=== PATIENT | female | born 1985 | race Two or more races ===

== ENCOUNTER 2016-07-12 11:25 | Emergency (ER) | payer MEDICAID ==
[2016-07-12 12:08] VITALS: BP 104/71; PULSE 80; RESP 16; TEMP 98.4; O2SAT 96
--- NOTE | 2016-07-12 12:53 | UCPHY ---
H & P Time Seen by Provider: 07/12/16 12:49 Patient Type: Established HPI/ROS: HPI: 22-year-old female presents to urgent care with chief concern mild headache, 1 episode of diarrhea. Symptoms onset suddenly this morning upon awakening. Denies fever, chills, URI symptoms, shortness of breath, chest pain , nausea, vomiting, abdominal pain, rash. Has a child with influenza presently. Has an infant at home. No history of asthma. ROS:10 point review of systems is negative other than as stated in HPI Smoking Status: Never smoked Physical Exam: Vital signs stable, reviewed by me General: Awake, alert, calm, cooperative. No acute distress. Head: Normalocephalic. Atraumatic. EENT: PERRLA. EOMI. No pallor or injection. Anicteric. No nystagmus. No injection. TMs intact bilaterally with normal landmarks. No rhinnorhea, nasal passages clear. Oropharynx without redness, exudates, or lesions. Tonsils 2+ bilaterally, no exudates. Neck: Supple, nontender. No lymphadenopathy. Full range of motion. No meningismus. Respiratory: Breathing unlabored. Breath sounds equal bilaterally and clear to auscultation. No adventitious sounds. CV: Chest nontender, atraumatic. Heart rate regular. No murmur, distal pulses 2+ bilaterally. Brisk cap refill all extremities. GI: Abdomen soft, nontender. Bowel sounds normoactive and positive x4 quadrants. : No suprapubic tenderness. No CVA or flank tenderness. Neuro: Alert. Oriented x 3. Speech clear. Nonfocal cranial nerves throughout. Sensation intact all extremities. Skin: Skin warm, dry, intact. No rashes, abrasions, or lacerations. Skin turgor normal. Extremities: Full range of motion in all 4 extremities. Strength 5+ all extremities. Constitutional: Initial Vital Signs Temperature (C) 36.9 C 07/12/16 12:05 Heart Rate 80 07/12/16 12:05 Respiratory Rate 16 07/12/16 12:05 Blood Pressure 104/71 07/12/16 12:05 O2 Sat (%) 96 07/12/16 12:05 O2 Delivery Mode Room Air Allergies/Adverse Reactions: No Known Allergies Allergy (Verified 07/12/16 12:08) Home Medications: Medication Instructions Recorded Oseltamivir Phosphate [Tamiflu 75 75 mg PO DAILY #10 cap 07/12/ mg (*)] Medical Decision Making ED Course/Re-evaluation: Nontoxic afebrile female presents to urgent care having had 1 episode of diarrhea and headache. She has no fever, no abdominal pain. She has no upper respiratory symptoms presently. As she has a at home, I will treat her with prophylactic Tamiflu. Differential Diagnosis: Viral syndrome, influenza, food-borne illness, gastroenteritis Departure - Departure Disposition: Home, Routine, Self-Care Clinical Impression: Viral syndrome Condition: Good Instructions: Viral Syndrome (ED) Additional Instructions: Plan: May use ibuprofen and/or Tylenol as needed for symptoms Drink plenty of fluids Take prophylactic Tamiflu as prescribed since you have an infant Follow up with primary care next week Prescriptions: Oseltamivir Phosphate [Tamiflu 75 mg (*)] 75 mg PO DAILY #10 cap - PQRS PQRS Measurement: Not applicable
== END 2016-07-12 13:02 | disposition home or self-care (01) ==
LOC: CED 11:25
DX: B34.9 Viral infection, unspecified (principal)
CPT/HCPCS: 99214-PO; G0463-PO

== ENCOUNTER 2017-05-10 09:18 | Emergency (ER) | payer MEDICAID ==
[2017-05-10 09:32] VITALS: BP 112/98; PULSE 84; RESP 16; TEMP 98.4; O2SAT 96
--- NOTE | 2017-05-10 10:03 | EDPHY ---
H & P Time Seen by Provider: 05/10/17 09:42 HPI/ROS: This patient presents with URI symptoms of 24 hours duration. She complains of coryza, a sore throat of moderate intensity associated with bilateral ear pressure. She has a mild cough associated with her symptoms and bifrontal headache of [id number] intensity. She also complains of generalized fatigue. She tried a oird-[id number] cold and flu preparation without relief this morning. She also tried halls with partial relief of her sore throat. No other exacerbating or alleviating factors are noted. ROS: Constitutional as per HPI. No high fevers or chills. HEENT: No drainage from her ear change in hearing. She still tolerating p.o. intake despite her sore throat. Pulmonary: No pleuritic pain or hemoptysis. No dyspnea. Cardiovascular: No chest pain or lightheadedness. GI: No vomiting or diarrhea. Integumentary: No skin rash Musculoskeletal: No arthralgias. 7point ROS is otherwise negative Past Medical/Surgical History: Otherwise healthy Smoking Status: Never smoked Physical Exam: Physical Exam Vital signs are normal. General: No acute distress HEENT: Nose: Clear discharge bilaterally. No sinus tenderness to percussion. Ears: External canals and tympanic membranes are clear with no erythema or abnormal findings bilaterally. Oropharynx: Mild erythema. No exudates. No dysphonia. No drooling or stridor. Eyes: Pupils equal and react to light. Extraocular motions are intact. Neck: Supple with no meningismus. No lymphadenopathy Lungs: Clear to auscultation bilaterally with no rales, rhonchi or wheeze. No respiratory distress. Cardiac: Regular rate and rhythm with no murmur gallop or rub Skin: No rash or pallor. Neuro: Alert with no focal deficits noted. Constitutional: Initial Vital Signs Temperature (C) 36.9 C 05/10/17 09:29 Heart Rate 84 05/10/17 09:29 Respiratory Rate 16 05/10/17 09:29 Blood Pressure 112/98 H 05/10/17 09:29 O2 Sat (%) 96 05/10/17 09:29 O2 Delivery Mode Room Air Allergies/Adverse Reactions: No Known Allergies Allergy (Verified 05/10/17 09:39) Home Medications: Medication Instructions Recorded Flunisolide Nasal [Nasarel Nasal 2 sprays NS BID #1 mdi 05/10/17 [place]] MDM/Departure - MDM ED Course/Re-evaluation: Discussion: Patient's presentation is consistent with viral URI without clinical evidence to suggest strep pharyngitis, lower respiratory infection, bronchitis or other complicating factors. I counseled the patient regarding viral URI - Depart Disposition: Home, Routine, Self-Care Clinical Impression: Viral URI Condition: Good Instructions: Upper Respiratory Infection (ED) Additional Instructions: Dx: Viral Upper Respiratory Infection plan: humidifier Flonase nasal spray Ibuprofen 400 -600 mg per 6 hrs as needed for fever, JOLLY or sore throat. Tylenol in addition if needed 650 - 1000 mg per 4 hrs in addition a few time per day Symptoms will typically last 3-10 days. Return difficulty breathing, high fevers despite tylenol or ibuprofen or other concerns. Prescriptions: Flunisolide Nasal [Nasarel Nasal [place]] 2 sprays NS BID #1 mdi Referrals: Unknown,Unknown [Primary Care Provider] - As per Instructions
== END 2017-05-10 10:10 | disposition home or self-care (01) ==
LOC: CED 09:18
DX: J06.9 Acute upper respiratory infection, unspecified (principal)

== ENCOUNTER 2017-05-22 15:47 | Emergency (ER) | payer MEDICAID ==
[2017-05-22 16:00] VITALS: RESP 16
[2017-05-22] MEDS ORDERED: KETOROLAC 30 MG/1 ML SDV IVP ONE (16:19)
[2017-05-22] MEDS ORDERED: ONDANSETRON 4 MG/2 ML VIAL IVP ONE (16:19)
--- NOTE | 2017-05-22 16:24 | EDPHY ---
H & P Stated Complaint: PT. states awoke this am with mid,low,suprapubic pain with flank pain. Time Seen by Provider: 05/22/17 16:09 HPI/ROS: This patient awakened this morning with suprapubic pain that is described as both crampy and sharp in nature severe intensity radiating to the bilateral flanks. She tried Tylenol at 1:30 a.m. without improvement and reports the symptoms worsen with movement. She has associated nausea but no vomiting. She reports that the pain is similar to pain she had with pelvic varices. She reports that she did have embolization in the past for this but then became another time after that and was told that would likely cause recurrence of the pelvic varices. She notes no other associated symptoms. She came here by private vehicle for further evaluation. ROS: Constitutional: No fevers chills or fatigue. HEENT: No URI symptoms or other complaints new Pulmonary: No cough shortness of breath Cardiovascular: No lightheadedness. GI: Normal bowel movements. No upper belly pain. She reports normal bowel movements. : Last menstrual period was late by few weeks. She has occasional irregular. She has minimal vaginal discharge currently that often proceeds her menses. No other symptoms. No dysuria, frequency or hematuria. Integumentary: No rash Neuro: No complaints Psychiatric: No complaints 10 point ROS is otherwise negative. Source: Patient Exam Limitations: No limitations - Personal History LMP (Females 10-55): 15-21 Days Ago Tetanus Vaccine Date: WITHIN 10 YRS - Medical/Surgical History PMH: , Tubal ligation Pelvic embolization x2 Hx Asthma: No Hx Chronic Respiratory Disease: No Hx Diabetes: No Hx Cardiac Disease: No Hx Renal Disease: No Hx Cirrhosis: No Hx Alcoholism: No Hx HIV/AIDS: No Hx Splenectomy or Spleen Trauma: No Other PMH: Pelvic varices noted on US ablation/ IR procedure. Grav 4, para 4. Surg-tubal ligation - Family History Significant Family History: No pertinent family hx - Social History Smoking Status: Never smoked Alcohol Use: Rarely Drug Use: None - Physical Exam Exam: General Appearance: Alert, no distress. Eyes: Pupils equal and round no pallor or injection. ENT, Mouth: Mucous membranes moist. Respiratory: There are no retractions, lungs are clear to auscultation. Cardiovascular: Regular rate and rhythm. Gastrointestinal: Mild to moderate suprapubic tenderness with no guarding or rebound. Back: Bilateral CVA tenderness-mild Neurological: GCS 15. No focal deficits. Skin: Warm and dry, no rashes. Musculoskeletal: Neck is supple nontender. Extremities are symmetrical, full range of motion. Psychiatric: Mood and affect are normal. DIFFERENTIAL DIAGNOSIS: After history and physical exam differential diagnosis was considered for cystitis, constipation, pyelonephritis, pelvic varices, ectopic , food intolerance with cramping, Constitutional: Initial Vital Signs Temperature (C) 36.4 C 05/22/17 15:54 Heart Rate 73 05/22/17 15:54 Respiratory Rate 16 05/22/17 15:54 Blood Pressure 98/42 L 05/22/17 15:54 O2 Sat (%) 98 05/22/17 15:54 O2 Delivery Mode Room Air Allergies/Adverse Reactions: No Known Allergies Allergy (Verified 05/22/17 15:53) Home Medications: Medication Instructions Recorded Ondansetron Odt [Zofran Odt] 4 - 8 mg PO Q4PRN PRN #4 tab 05/22/17 Medical Decision Making ED Course/Re-evaluation: IV normal saline bolus, Zofran IV, Toradol IV The patient had incomplete relief of her symptoms with initial round of medications. I then treated her with Reglan and Benadryl IV in addition and she was able to take a nap thereafter and awakened feeling much improved with minimal discomfort and resolution of her nausea. She tolerated p.o. intake thereafter without emesis. Review of her labs reveals normal CBC and metabolic panel with negative test. Her urinalysis is contaminated but does not appear consistent with UTI. The source of her pain may simply be premenstrual cramping this more severe than usual given the timing of her symptoms. Is also possible she could be having some recurrence of her pelvic varices but she appears clinically well after treatment does not have a surgical abdomen or other concerning findings. She will follow up with OBGYN for any ongoing symptoms. She understands need to return should she have any significant worsening despite the treatment plan. - Data Points Laboratory Results: Laboratory Results 05/22/17 16:15 05/22/17 16:15 Medications Given: Discontinued Medications Diphenhydramine HCl (Benadryl Injection) 25 mg IVP EDNOW ONE Stop: 05/22/17 16:43 Last Admin: 05/22/17 16:48 Dose: 25 mg Sodium Chloride (Ns) 1,000 mls @ 0 mls/hr IV ONCE ONE PRN Reason: Wide Open Stop: 05/22/17 16:27 Last Admin: 05/22/17 16:27 Dose: 1,000 mls Ketorolac Tromethamine (Toradol) 30 mg IVP EDNOW ONE Stop: 05/22/17 16:20 Last Admin: 05/22/17 16:27 Dose: 30 mg Metoclopramide HCl (Reglan Injection) 5 mg IVP EDNOW ONE Stop: 05/22/17 16:43 Last Admin: 05/22/17 16:52 Dose: 5 mg Ondansetron HCl (Zofran) 4 mg IVP EDNOW ONE Stop: 05/22/17 16:20 Last Admin: 05/22/17 16:32 Dose: 4 mg Ondansetron HCl (Zofran Odt 4 Mg Prepack#2) 1 btl TAKEHOME EDNOW ONE Stop: 05/22/17 18:23 Last Admin: 05/22/17 18:44 Dose: 1 btl Departure - Departure Disposition: Home, Routine, Self-Care Clinical Impression: Pelvic pain Condition: Good Instructions: Ondansetron (By mouth), Pelvic Pain in Women (ED) Additional Instructions: Diagnosis: Pelvic pain Your labs tonight are normal. Your not . No urinary tract infection. She thyroid test is also normal. Plan: Ibuprofen and Tylenol for pain control as needed Zofran for nausea if needed Call the physician listed below-email deployment specialist arrange follow-up appointment for any ongoing symptoms. Return for any significant worsening despite treatment plan. Referrals: NONE *PRIMARY CARE P,. [Primary Care Provider] - As per Instructions Annel Rico MD [Medical Doctor] - As per Instructions Prescriptions: Ondansetron Odt [Zofran Odt] 4 - 8 mg PO Q4PRN PRN #4 tab PRN Reason: Vomiting
[2017-05-22 16:25] LABS: % IMMATURE GRANULYOCYTES 0.3 % (0.0-1.1); ABSOLUTE IMMATURE GRANULOCYTES 0.03 10^3/uL (0.00-0.10); ADD DIFF? NO; ADD MORPH? NO; ADD SCAN? NO; ATYPICAL LYMPHOCYTE FLAG 10 (0-99); FRAGMENT RBC FLAG 0 (0-99); HEMOGLOBIN 12.3 g/dL (12.6-16.3); LEFT SHIFT FLG 0 (0-99); LIPEMIA HEMOLYSIS FLAG 80 (0-99); MEAN CELL HEMOGLOBIN 26.4 pg (27.9-34.1); MEAN CELL HEMOGLOBIN CONCENTR. 31.5 g/dL (32.4-36.7); MEAN CELL VOLUME 83.7 fL (81.5-99.8); PLATELET CLUMPS FLAG 0 (0-99); PLATELET COUNT 183 10^3/uL (150-400); RED BLOOD CELL COUNT 4.66 10^6/uL (4.18-5.33); RED CELL DISTRIBUTION WIDTH 14.2 % (11.5-15.2)
[2017-05-22 16:26] LABS: COLOR PALE YELLOW; LEUKOCYTE ESTERASE,URINE TRACE (NEGATIVE); NITRITE,URINE NEGATIVE (NEGATIVE)
[2017-05-22] MEDS ORDERED: NS 1,000 ML IV ONE (16:26)
[2017-05-22 16:35] LABS: AMORPHOUS 2+ /hpf (NONE-1+); BACTERIA 2+ /hpf (NONE SEEN); MUCUS 2+ /lpf (NONE-1+); RBC,URINE 0-1 /hpf (0-3)
[2017-05-22 16:38] LABS: ALANINE AMINOTRANSFERASE 24 IU/L (9-52); ALBUMIN 4.4 g/dL (3.5-5.0); ALKALINE PHOSPHATASE 85 IU/L (38-126); ANION GAP 18 mEq/L (8-16); ASPARTATE AMINOTRANSFERASE 15 IU/L (14-46); BILIRUBIN,TOTAL 0.4 mg/dL (0.1-1.4); CALCIUM 9.6 mg/dL (8.5-10.4); CARBON DIOXIDE 24 mEq/l (22-31); CHLORIDE 104 mEq/L (97-110); CREATININE 0.5 mg/dL (0.6-1.0); GLOMERULAR FILTRATION RATE > 60; GLUCOSE 89 mg/dL (70-100); POTASSIUM 3.5 mEq/L (3.5-5.2); SODIUM 146 mEq/L (134-144); TOTAL PROTEIN 7.5 g/dL (6.3-8.2)
[2017-05-22] MEDS ORDERED: METOCLOPRAMIDE 10 MG/2 ML VIAL IVP ONE (16:42)
[2017-05-22 18:14] VITALS: BP 95/41; PULSE 79; TEMP 98.4; O2SAT 96
[2017-05-22] MEDS ORDERED: ONDANSETRON 4MG PREPACK#2 BTL TAKEHOME ONE (18:22)
== END 2017-05-22 18:13 | disposition home or self-care (01) ==
LOC: CED 15:47
DX: R10.2 Pelvic and perineal pain (principal); Z98.51 Tubal ligation status
CPT/HCPCS: 80053-PO; 81003-PO; 81015-PO; 84443-PO; 84703-PO; 85025-PO; 96374; J1200; J1885; J2405; J2765

== ENCOUNTER 2017-06-18 14:52 | Emergency (ER) | payer MEDICAID ==
[2017-06-18 15:04] VITALS: BP 99/75; PULSE 107; RESP 18; TEMP 98.6; O2SAT 97
[2017-06-18] MEDS ORDERED: IBUPROFEN 600 MG TAB PO ONE (15:08)
[2017-06-18] MEDS ORDERED: ACETAMINOPHEN 500 MG TAB PO ONE (15:08)
--- NOTE | 2017-06-18 15:09 | EDPHY ---
H & P Stated Complaint: cough/chills Time Seen by Provider: 06/18/17 15:00 HPI/ROS: CHIEF COMPLAINT: Sinus congestion, sore throat, cough, body aches HISTORY OF PRESENT ILLNESS: The patient is a 31-year-old healthy female who comes to the emergency department complaining of a sore throat, sinus congestion , cough and body aches. She does not have a thermometer at home but feels like she has had a fever. She states that it hurts her forehead and her chest when she coughs. She states that her 2-year-old had similar symptoms for the last 3 days but is feeling better today. The patient has had symptoms for 2 days. She denies risk of . No nausea vomiting or diarrhea. No abdominal pain. No shortness of breath or chest pain. She did have a flu vaccination this year. She denies headache or neck stiffness. REVIEW OF SYSTEMS: Constitutional: See HPI EENTM: See HPI Respiratory: See HPI Cardiac: denies: chest pain, irregular heart rate, lightheadedness, palpitations Gastrointestinal/Abdominal: denies: abdominal pain, diarrhea, nausea, vomiting, blood streaked stools Genitourinary: denies: dysuria, frequency, hematuria, pain Musculoskeletal: denies: joint pain, muscle pain Skin: denies: lesions, rash, jaundice, bruising Neurological: denies: headache, numbness, paresthesia, tingling, dizziness, weakness Hematologic/Lymphatic: denies: blood clots, easy bleeding, easy bruising Immunologic/allergic: denies: HIV/AIDS, transplant EXAM: GENERAL: Well-appearing, well-nourished and in no acute distress. HEAD: Atraumatic, normocephalic. EYES: Pupils equal round and reactive to light, extraocular movements intact, sclera anicteric, conjunctiva are normal. ENT: TMs normal, nares patent, oropharynx clear without exudates. Moist mucous membranes. NECK: Normal range of motion, supple without lymphadenopathy or JVD. LUNGS: Breath sounds clear to auscultation bilaterally and equal. No wheezes rales or rhonchi. HEART: Regular rate and rhythm without murmurs, rubs or gallops. ABDOMEN: Soft, nontender, normoactive bowel sounds. No guarding, no rebound. No masses appreciated. BACK: No CVA tenderness, no spinal tenderness, step-offs or deformities EXTREMITIES: Normal range of motion, no pitting or edema. No clubbing or cyanosis. NEUROLOGICAL: Cranial nerves II through XII grossly intact. Normal speech, normal gait. 5/5 strength, normal movement in all extremities, normal sensation PSYCH: Normal mood, normal affect. SKIN: Warm, dry, normal turgor, no visible rashes or lesions. Source: Patient Exam Limitations: No limitations - Personal History LMP (Females 10-55): Unknown Current Tetanus Diphtheria and Acellular Pertussis (TDAP): Yes Tetanus Vaccine Date: WITHIN 10 YRS - Medical/Surgical History Hx Asthma: No Hx Chronic Respiratory Disease: No Hx Diabetes: No Hx Cardiac Disease: No Hx Renal Disease: No Hx Cirrhosis: No Hx Alcoholism: No Hx HIV/AIDS: No Hx Splenectomy or Spleen Trauma: No Other PMH: Pelvic varices noted on US ablation/ IR procedure. Grav 4, para 4. Surg-tubal ligation - Family History Significant Family History: No pertinent family hx - Social History Smoking Status: Never smoked Alcohol Use: Sober Drug Use: None Constitutional: Initial Vital Signs Temperature (C) 37.0 C 06/18/17 15:02 Heart Rate 107 H 06/18/17 15:02 Respiratory Rate 18 06/18/17 15:02 Blood Pressure 99/75 L 06/18/17 15:02 O2 Sat (%) 97 06/18/17 15:02 O2 Delivery Mode Room Air Allergies/Adverse Reactions: No Known Allergies Allergy (Verified 05/22/17 15:53) Home Medications: Medication Instructions Recorded NK [No Known Home Meds] 06/18/17 Medical Decision Making ED Course/Re-evaluation: The patient is well appearing. Her exam is unremarkable. She likely has a viral infection as do her children. I encouraged her to rest, hydrate intake anti-antipyretics. She seems happy with this plan and declines further workup or testing at this time. She is small and typically has a lower blood pressure. She was tachycardic initially triage but in the room it is not. Differential Diagnosis: Partial list of the Differential diagnosis considered include but were not limited to; viral syndrome, sinusitis, pharyngitis, influenza and although unlikely based on the history and physical exam, I also considered sepsis, meningitis, pneumonia, bronchitis. I discussed these differential diagnoses and the plan with the patient as well as the usual and expected course. The patient understands that the diagnosis is provisional and that in medicine we are not always correct and that further workup is often warranted. Usual and customary warnings were given. All of the patient's questions were answered. The patient was instructed to return to the emergency department should the symptoms at all worsen or return, otherwise to followup with the physician as we discussed. - Data Points Medications Given: Discontinued Medications Acetaminophen (Tylenol) 1,000 mg PO EDNOW ONE Stop: 06/18/17 15:09 Last Admin: 06/18/17 15:11 Dose: 1,000 mg Ibuprofen (Motrin) 600 mg PO EDNOW ONE Stop: 06/18/17 15:09 Last Admin: 06/18/17 15:11 Dose: 600 mg Departure - Departure Disposition: Home, Routine, Self-Care Clinical Impression: Upper respiratory tract infection Qualifiers: URI type: unspecified viral URI Qualified Code(s): J06.9 - Acute upper respiratory infection, unspecified Condition: Good Instructions: Upper Respiratory Infection (DC) Referrals: Clara Salgado NP [Primary Care Provider] - As per Instructions
== END 2017-06-18 15:18 | disposition home or self-care (01) ==
LOC: CED 14:52
DX: J06.9 Acute upper respiratory infection, unspecified (principal)

== ENCOUNTER 2018-05-03 19:21 | Emergency (ER) | payer MEDICAID ==
--- NOTE | 2018-05-03 19:23 | EDPHY ---
H & P Time Seen by Provider: 05/03/18 19:23 HPI/ROS: HPI CHIEF COMPLAINT: Abdominal pain. HISTORY OF PRESENT ILLNESS: This is a very pleasant 32-year-old female, she presents emergency room abdominal pain. The pain is located periumbilical. It has been around for the past 12-14 hours. She has associated nausea with this and 2 episodes of nonbilious nonbloody vomiting. She also had loose watery diarrhea. She describes the pain is crampy. Rather constant now getting worse this evening. Located periumbilical. She denies any chest pain or shortness of breath. No upper abdominal pain. No fever. Denies vaginal discharge or urinary symptoms. Pain is currently 6/10 periumbilical. Past Medical History: No significant medical history Past Surgical History: Pelvic vein embolization, tubal ligation Social History: Denies drugs alcohol tobacco. Family History: Noncontributory ROS REVIEW OF SYSTEMS: 10 Systems were reviewed and negative with the exception of the elements mentioned in the history of present illness. Exam Constitutional triage nursing summary reviewed, vital signs reviewed, awake/ alert. Eyes normal conjunctivae and sclera, EOMI, PERRLA. HENT normal inspection, atraumatic, moist mucus membranes, no epistaxis, neck supple/ no meningismus, no raccoon eyes. Respiratory clear to auscultation bilaterally, normal breath sounds, no respiratory distress, no wheezing. Cardiovascular rate normal, regular rhythm, no murmur, no edema, distal pulses normal. Gastrointestinal mild tender palpation periumbilical, no rebound, no guarding , normal bowel sounds, no distension, no pulsatile mass. Genitourinary no CVA tenderness. Musculoskeletal no midline vertebral tenderness, full range of motion, no calf swelling, no tenderness of extremities, no meningismus, good pulses, neurovascularly intact. Skin pink, warm, & dry, no rash, skin atraumatic. Neurologic awake, alert and oriented x 3, AAOx3, moves all 4 extremities equally, motor intact, sensory intact, CN II-XII intact, normal cerebellar, normal vision, normal speech. Psychiatric normal mood/affect. Heme/Lymph/Immune no lymphadenopathy. Differential diagnosis includes but is not limited to and in no particular order : Bowel obstruction, appendicitis, gallbladder disease, diverticulitis, colitis , enteritis, perforated viscus, gastritis, GERD, esophagitis, urinary tract infection, pyelonephritis, kidney stones Medical Decision Making: Plan for this patient IV establishment IV fluid bolus Zofran as needed for nausea, IV Dilaudid 0.5 mg for pain control, CT scan abdomen pelvis with IV contrast rule out acute appendicitis, basic blood work. Urinalysis. Re-evaluate. Re-evaluation: CT scan abdomen pelvis with IV contrast reviewed. Called to me by Dr. Perkins. This shows a normal appendix. Previous pelvic pain ablations present. No evidence of pelvic congestion syndrome on CT scan. No evidence of free air free fluid. 2110: Patient's urinalysis shows leukocyte Estrace. Does have mucus in it. I repeated it for urine dip with sewer cleaner catch still has leukocyte Estrace. Given this will send for urine culture and treat the Rocephin here in the emergency room. Her abdominal pain is periumbilical. Her appendix is normal on the CT scan. CBCs reviewed shows a normal white count. Electrolytes are appropriate. Patient is feeling better after 2 L of fluid. IV Dilaudid. IV Zofran and IV Phenergan. Re-examination at 9:11 p.m. Abdomen is soft nontender. 2136: Patient re-evaluated at this time. Resting comfortably. Abdomen remained soft nontender. She is not vomiting. She p.o. Challenge well with fluids and crackers. She states she feels much better after IV fluids nausea medicine pain medicine. Unclear etiology of her abdominal pain this evening could possibly be from UTI. Urine culture sent. Keflex will be prescribed. She received IV Rocephin here. Appendix visualized and normal on CT scan. I did discussed return precautions with her she understands return emergency room develops worsening abdominal pain, fever, vomiting. Comfortable this plan. 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 Grav 4, para 4. Surg-tubal ligation - Social History Smoking Status: Never smoked Constitutional: Initial Vital Signs Temperature (C) 36.5 C 05/03/18 19:31 Heart Rate 66 05/03/18 19:31 Respiratory Rate 14 05/03/18 19:31 Blood Pressure 97/53 L 05/03/18 19:31 O2 Sat (%) 99 05/03/18 19:31 O2 Delivery Mode Room Air Allergies/Adverse Reactions: No Known Allergies Allergy (Verified 05/03/18 19:28) Home Medications: Medication Instructions Recorded Cephalexin [Keflex] 500 mg PO Q6H #28 cap 05/03/18 Medical Decision Making - Diagnostics Imaging Results: Imaging Impressions Abdomen CT 05/03/18 19:31 Impression: Status post bilateral gonadal vein embolization. Otherwise normal CT scan of the abdomen and pelvis. Findings and recommendations discussed with Lang Esparza MD, at 8:40 PM, . Final report concurs with initial preliminary interpretation. - Data Points Laboratory Results: Laboratory Results 05/03/18 19:30 05/03/18 19:30 05/03/18 05/03/18 05/03/18 20:42 19:47 19:30 WBC RBC Hgb Hct MCV MCH MCHC RDW Plt Count MPV Neut % (Auto) Lymph % (Auto) [place] % (Auto) Eos % (Auto) Baso % (Auto) Nucleat RBC Rel Count Absolute Neuts (auto) Absolute Lymphs (auto) Absolute Monos (auto) Absolute Eos (auto) Absolute Basos (auto) Absolute Nucleated RBC Immature Gran % Immature Gran # POC Sodium 143 mEq/L mEq/L (135-145) Sodium POC Potassium 3.1 mEq/L L mEq/L (3.3-5.0) Potassium POC Chloride TNP Chloride Carbon Dioxide POC Total CO2 24 mEq/L mEq/L (22-31) Anion Gap POC BUN 13 mg/dL mg/dL (7-23) BUN Creatinine POC Creatinine 0.6 mg/dL mg/dL (0.6-1.0) Estimated GFR Glucose POC Glucose 92 mg/dL mg/dL (70-100) POC Lactic Acid Sreedhar 1.6 mmol/L mmol/L (0.7-2.1) POC Calcium 9.4 mg/dL mg/dL (8.5-10.4) Calcium Total Bilirubin Conjugated Bilirubin Unconjugated Bilirubin AST ALT Alkaline Phosphatase Total Protein Albumin Lipase Urine Color YELLOW Urine Appearance MODERATELY TURBID Urine pH 6.0 (5.0-7.5) Ur Specific [place] 1.031 H (1.002-1.030) Urine Protein 1+ H (NEGATIVE) Urine Ketones NEGATIVE (NEGATIVE) Urine Blood 1+ H (NEGATIVE) Urine Nitrate NEGATIVE (NEGATIVE) Urine Bilirubin NEGATIVE (NEGATIVE) Urine Urobilinogen 2.0 EU H EU (0.2-1.0) Ur Leukocyte Esterase 2+ H (NEGATIVE) Urine RBC 1-3 /hpf /hpf (0-3) Urine WBC 5-10 /hpf H /hpf (0-3) Ur Epithelial Cells 3+ /lpf H /lpf (NONE-1+) Urine Bacteria TRACE /hpf H /hpf (NONE SEEN) Urine Mucus 2+ /lpf H /lpf (NONE-1+) Urine Glucose NEGATIVE (NEGATIVE) 05/03/18 05/03/18 19:30 19:30 WBC 7.63 10^3/uL 10^3/uL (3.80-9.50) RBC 4.37 10^6/uL 10^6/uL (4.18-5.33) Hgb 13.2 g/dL g/dL (12.6-16.3) Hct 39.2 % % (38.0-47.0) MCV 89.7 fL fL (81.5-99.8) MCH 30.2 pg pg (27.9-34.1) MCHC 33.7 g/dL g/dL (32.4-36.7) RDW 12.8 % % (11.5-15.2) Plt Count 146 10^3/uL L 10^3/uL (150-400) MPV 13.9 fL H fL (8.7-11.7) Neut % (Auto) 46.6 % % (39.3-74.2) Lymph % (Auto) 38.4 % % (15.0-45.0) [place] % (Auto) 10.4 % % (4.5-13.0) Eos % (Auto) 3.4 % % (0.6-7.6) Baso % (Auto) 0.9 % % (0.3-1.7) Nucleat RBC Rel Count 0.0 % % (0.0-0.2) Absolute Neuts (auto) 3.56 10^3/uL 10^3/uL (1.70-6.50) Absolute Lymphs (auto) 2.93 10^3/uL 10^3/uL (1.00-3.00) Absolute Monos (auto) 0.79 10^3/uL 10^3/uL (0.30-0.80) Absolute Eos (auto) 0.26 10^3/uL 10^3/uL (0.03-0.40) Absolute Basos (auto) 0.07 10^3/uL 10^3/uL (0.02-0.10) Absolute Nucleated RBC 0.00 10^3/uL 10^3/uL (0-0.01) Immature Gran % 0.3 % % (0.0-1.1) Immature Gran # 0.02 10^3/uL 10^3/uL (0.00-0.10) POC Sodium Sodium 141 mEq/L mEq/L (135-145) POC Potassium Potassium 4.0 mEq/L mEq/L (3.3-5.0) POC Chloride Chloride 106 mEq/L mEq/L (97-110) Carbon Dioxide 24 mEq/l mEq/l (22-31) POC Total CO2 Anion Gap 11 mEq/L mEq/L (6-14) POC BUN BUN 15 mg/dL mg/dL (7-23) Creatinine 0.6 mg/dL mg/dL (0.6-1.0) POC Creatinine Estimated GFR > 60 Glucose 92 mg/dL mg/dL (70-100) POC Glucose POC Lactic Acid Sreedhar POC Calcium Calcium 9.7 mg/dL mg/dL (8.5-10.4) Total Bilirubin 0.4 mg/dL mg/dL (0.1-1.4) Conjugated Bilirubin 0.2 mg/dL mg/dL (0.0-0.5) Unconjugated Bilirubin 0.2 mg/dL mg/dL (0.0-1.1) AST 18 IU/L IU/L (14-46) ALT 22 IU/L IU/L (9-52) Alkaline Phosphatase 75 IU/L IU/L (38-126) Total Protein 7.7 g/dL g/dL (6.3-8.2) Albumin 4.6 g/dL g/dL (3.5-5.0) Lipase 126 IU/L IU/L (23-300) Urine Color Urine Appearance Urine pH Ur Specific [place] Urine Protein Urine Ketones Urine Blood Urine Nitrate Urine Bilirubin Urine Urobilinogen Ur Leukocyte Esterase Urine RBC Urine WBC Ur Epithelial Cells Urine Bacteria Urine Mucus Urine Glucose Medications Given: Ceftriaxone Sodium/Dextrose (Rocephin 1 Gm (Premix)) 50 mls @ 100 mls/hr IV EDNOW ONE PRN Reason: Protocol Stop: 05/03/18 21:40 Last Admin: 05/03/18 21:20 Dose: 50 mls Discontinued Medications Hydromorphone HCl (Dilaudid) 0.5 mg IVP EDNOW ONE Stop: 05/03/18 19:32 Last Admin: 05/03/18 19:41 Dose: 0.5 mg Hydromorphone HCl (Dilaudid) 0.5 mg IVP EDNOW ONE Stop: 05/03/18 20:23 Last Admin: 05/03/18 20:31 Dose: 0.5 mg Sodium Chloride (Ns) 1,000 mls @ 0 mls/hr IV EDNOW ONE; Wide Open PRN Reason: Protocol Stop: 05/03/18 19:32 Last Admin: 05/03/18 19:40 Dose: 1,000 mls Sodium Chloride (Ns) 1,000 mls @ 0 mls/hr IV ONCE ONE PRN Reason: Wide Open Stop: 05/03/18 20:23 Last Admin: 05/03/18 20:30 Dose: 1,000 mls Ondansetron HCl (Zofran) 4 mg IVP EDNOW ONE Stop: 05/03/18 19:32 Last Admin: 05/03/18 19:41 Dose: 4 mg Promethazine HCl (Phenergan) 6.25 mg IVP ONCE ONE Stop: 05/03/18 21:06 Last Admin: 05/03/18 21:08 Dose: 6.25 mg Point of Care Test Results: Chemistry 05/03/18 19:47 POC Sodium 143 mEq/L mEq/L (135-145) POC Potassium 3.1 mEq/L L mEq/L (3.3-5.0) POC Chloride TNP POC Total CO2 24 mEq/L mEq/L (22-31) POC BUN 13 mg/dL mg/dL (7-23) POC Creatinine 0.6 mg/dL mg/dL (0.6-1.0) POC Glucose 92 mg/dL mg/dL (70-100) POC Calcium 9.4 mg/dL mg/dL (8.5-10.4) Blood Gas/Lactic Acid-Venous 05/03/18 20:42 POC Lactic Acid Sreedhar 1.6 mmol/L mmol/L (0.7-2.1) Urine Collection Date 05/03/18 Collection Time 19:28 HCG Results Negative Urine Dip Collection Date 05/03/18 Collection Date 05/03/18 Collection Time 21:09 Collection Time 19:28 Specific [place] (1.002-1.030) 1.015 Specific [place] (1.002-1.030) 1.025 PH (5.0-7.5) 8.5 PH (5.0-7.5) 7.0 Leukocytes (Negative) Trace Leukocytes (Negative) 1+ Nitrites (Negative) Negative Nitrites (Negative) Negative Protein (Negative) Negative Protein (Negative) Trace Glucose (Negative) Negative Glucose (Negative) Negative Ketones (Negative) Negative Ketones (Negative) Negative Urobilnogen (0.2-1.0 EU) 0.2 Urobilnogen (0.2-1.0 EU) 1.0 Bilirubin (Negative) Negative Bilirubin (Negative) Negative Blood (Negative) Trace Blood (Negative) Trace Departure - Departure Disposition: Home, Routine, Self-Care Clinical Impression: Abdominal pain Qualifiers: Abdominal location: generalized Qualified Code(s): R10.84 - Generalized abdominal pain UTI (urinary tract infection) Qualifiers: Urinary tract infection type: acute cystitis Hematuria presence: without hematuria Qualified Code(s): N30.00 - Acute cystitis without hematuria Condition: Good Instructions: Urinary Tract Infection in Women (ED), Acute Abdominal Pain (ED) Additional Instructions: 1. Watson diet over the next 24-48 hours. No spicy fatty greasy foods. 2. Return emergency room if you have worsening abdominal pain, fever, vomiting 3. Take it easy and rest. Referrals: DESMOND KNOTT [Other] - As per Instructions Prescriptions: Cephalexin [Keflex] 500 mg PO Q6H #28 cap
[2018-05-03] MEDS ORDERED: NS 1,000 ML IV ONE ×2 (19:31→20:22)
[2018-05-03] MEDS ORDERED: ONDANSETRON 4 MG/2 ML VIAL IVP ONE (19:31)
[2018-05-03] MEDS ORDERED: HYDROmorphONE/DILAUDID 2 MG/ML INJ IVP ONE ×2 (19:31→20:22)
[2018-05-03] MEDS ORDERED: IOPAMIDOL (ISOVUE-300) 100 ML BTL ONE (19:36)
[2018-05-03 20:29] LABS: PLATELET COUNT 146 10^3/uL (150-400)
[2018-05-03] MEDS ORDERED: PROMETHAZINE HCL 25 MG/ML INJ IVP ONE (21:05)
[2018-05-03 21:40] VITALS: BP 106/49
== END 2018-05-03 21:50 | disposition home or self-care (01) ==
LOC: CED 19:21
DX: N30.00 Acute cystitis without hematuria (principal); E86.9 Volume depletion, unspecified
CPT/HCPCS: 74177-PO; 80048-PO; 80076-PO; 83605-PO; 96365; J0696; J1170; J2405; J2550; Q9967

== ENCOUNTER 2018-09-22 18:33 | Emergency (ER) | payer MEDICAID ==
[2018-09-22] MEDS ORDERED: IBUPROFEN 200 MG TAB PO ONE (19:02)
--- NOTE | 2018-09-22 20:02 | EDPHY ---
H & P Time Seen by Provider: 09/22/18 19:05 HPI/ROS: 33 yo F presents c/o nasal congestion, cough, sore throat, body aches and fever , for 2-3 days. She is here today with her daughter who is 2 years old with similar symptoms. Review of systems As per HPI General positive fever no chills no weakness HEENT no eye pain no eye discharge. No eye redness, positive sore throat Respiratory positive cough, no shortness of breath Cardiac no chest pain, no peripheral edema GI no abdominal pain, no diarrhea, no constipation, no nausea, no vomiting no flank pain, no hematuria, no dysuria Musculoskeletal positive myalgias, no joint pain Heme no easy bruising, no easy bleeding Endo no polyuria, no polydipsia Skin no rashes, no pruritus Neuro no syncope, no dizziness, no headaches Psych is no suicidal ideation, no homicidal ideation Past Medical/Surgical History: Non contributory Social History: Lives with family Denies alcohol or drug use Smoking Status: Never smoked Physical Exam: 33-year-old female Alert and oriented nontoxic appearance, no acute distress afebrile Atraumatic normocephalic Extraocular muscles intact, anicteric Nares mild yellowish discharge Oropharynx mild erythema no tonsillar swelling no exudate no uvular deviation, tolerating own secretions Neck supple no lymphadenopathy Lungs clear to auscultation bilaterally Heart regular rate and rhythm Abdomen normoactive bowel sounds soft nontender Extremities no cyanosis clubbing or edema Skin no rash Constitutional: Initial Vital Signs Temperature (C) 37.2 C 09/22/18 18:52 Heart Rate 92 09/22/18 18:52 Respiratory Rate 16 09/22/18 18:52 Blood Pressure 102/67 09/22/18 18:52 O2 Sat (%) 96 09/22/18 18:52 O2 Delivery Mode Room Air Allergies/Adverse Reactions: No Known Allergies Allergy (Verified 09/22/18 18:51) Home Medications: Medication Instructions Recorded NK [No Known Home Meds] 09/22/18 Medical Decision Making ED Course/Re-evaluation: Patient seen and evaluated for cough, fever, cold symptoms, body aches. Influenza negative Impression Viral syndrome, URI Plan DC home Symptomatic care, acetaminophen or ibuprofen as needed for fever, over-the- counter cough syrup and/or decongestant Rest plenty of fluids Follow up with your primary care physician at [facility] if not improving Differential Diagnosis: Differential diagnosis considered but not limited to: URI, bronchitis, pneumonia, influenza, viral syndrome, pharyngitis - Data Points Medications Given: Discontinued Medications Ibuprofen (Motrin) 600 mg PO EDNOW ONE Stop: 09/22/18 19:03 Last Admin: 09/22/18 19:17 Dose: 600 mg Point of Care Test Results: Influenza PCR Flu Nasal Swab Collection Date 09/22/18 Flu Nasal Swab Collection Time 19:30 Influenza A Result Not Detected Influenza B Result Not Detected Departure - Departure Disposition: Home, Routine, Self-Care Clinical Impression: Upper respiratory infection Condition: Good Instructions: Upper Respiratory Infection (ED), Viral Syndrome (ED) Referrals: NIKOS LOGAN [Other] - As per Instructions Stand Alone Forms: Work Excuse
[2018-09-22 20:36] VITALS: BP 104/69
== END 2018-09-22 20:14 | disposition home or self-care (01) ==
LOC: CED 18:33
DX: B34.9 Viral infection, unspecified (principal); J06.9 Acute upper respiratory infection, unspecified
CPT/HCPCS: 87400-QW-ER; 99282-ER

== ENCOUNTER 2018-12-01 09:51 | Emergency (ER) | payer OTHER, MEDICAID | END 2018-12-01 10:55 | disposition home or self-care (01) | LOC: CED 09:51 ==